=== PATIENT | male | born 1995 | race Caucasian/White ===

== ENCOUNTER 2022-01-19 09:10 | Emergency (ER) | payer BC ==
[2022-01-19 09:25] VITALS: BP 116/70; PULSE 71
[2022-01-19] MEDS ORDERED: Diphtheria,Pertussis(Acell),Tetanus Vaccine 0.5 ML Syringe IM ONE (09:30)
[2022-01-19] MEDS ORDERED: Lidocaine 1% 5 ML VIAL ONE (09:50)
[2022-01-19] MEDS ORDERED: Lidocaine 1% 5 ML VIAL INJECT ONE (09:50)
[2022-01-19] MEDS ORDERED: Lidocaine 1% 20 ML MDV ONE (09:51)
== END 2022-01-19 10:06 | disposition home or self-care (01) ==
LOC: KA.ED 09:10
DX: S60.451A Superficial foreign body of left index finger, initial encounter (principal); I10 Essential (primary) hypertension; E66.9 Obesity, unspecified; Z68.41 Body mass index [BMI] 40.0-44.9, adult; Z88.0 Allergy status to penicillin; Z88.1 Allergy status to other antibiotic agents; Z23 Encounter for immunization; W45.8XXA Other foreign body or object entering through skin, initial encounter
CPT/HCPCS: 90471; 90715; 99283-25